=== PATIENT | male | born 1955 | race Caucasian/White ===

== ENCOUNTER 2018-10-09 05:39 | Day surgery (SDC) | payer BC ==
[2018-10-09 07:31] VITALS: BMI 24.4
[2018-10-09 08:40] VITALS: TEMP 97.6
[2018-10-09 09:09] VITALS: PULSE 59
[2018-10-09 10:11] VITALS: BP 136/80
== END 2018-10-09 09:40 | disposition home or self-care (01) ==
LOC: JASU-ENDO 05:39
PROVIDERS: ATTEND Internal Medicine Gastroenterology
PROC: 0DJD8ZZ Inspection of Lower Intestinal Tract, Via Natural or Artificial Opening Endoscopic (ICD-10-PCS; principal; 2018-10-09 08:00)
DX: Z12.11 Encounter for screening for malignant neoplasm of colon (principal); K64.8 Other hemorrhoids